=== PATIENT | female | born 1985 | race African-American/Black ===

== ENCOUNTER 2020-07-10 15:11 | Emergency (ER) | payer MEDICAID ==
[~2020-07-10] VITALS: Ht 167.6 cm; Wt 56.2 kg
[2020-07-10 15:14] VITALS: BP_SYST 120
[2020-07-10] MEDS ORDERED: NACL 0.9% 1,000 ML IV ONE (15:30)
[2020-07-10] MEDS ORDERED: KETOROLAC TROMETHAMINE 30 MG VIAL IVP ONE (15:30)
[2020-07-10 15:51] LABS: BASOPHILS % (AUTO) 0.5 % (0.0-2.0); EOSINOPHILS % (AUTO) 0.4 % (0.0-4.0); HEMATOCRIT 37.9 % (36-48); HEMOGLOBIN 12.5 g/dL (12.0-16.0); LYMPHOCYTES # (AUTO) 0.9 K/uL (1.0-5.5); LYMPHOCYTES % (AUTO) 12.4 % (20.5-51.5); MEAN CORPUSCULAR HEMOGLOBIN 31 pg (27-31); MEAN CORPUSCULAR HGB CONC 33 % (32-36); MEAN CORPUSCULAR VOLUME 94 fL (79.0-98.0); MONOCYTES # (AUTO) 0.4 K/uL (0.0-1.0); MONOCYTES % (AUTO) 5.7 % (1.7-9.3); NEUTROPHILS # (AUTO) 6.1 K/uL (1.8-7.7); PLATELET COUNT (AUTO) 241 K/uL (130-430); RED BLOOD CELL COUNT(AUTO) 4.04 MIL/uL (4.2-6.2); RED CELL DISTRIBUTION WIDTH 13.4 % (9.0-15.0); WHITE BLOOD COUNT (AUTO) 7.5 K/uL (4.8-10.8)
[2020-07-10 16:00] LABS: CALCIUM 8.8 mg/dL (8.4-11.0); CREATININE 0.71 mg/dL (0.55-1.30); POTASSIUM 3.3 mmol/L (3.5-5.1)
--- NOTE | 2020-07-10 16:00 | NUR ---
PT PLACED IN BED 2. REPORT TO YVONNE
--- NOTE | 2020-07-10 16:10 | NUR ---
MD BURNETTE AT BEDSIDE ASSESSING PT.
--- NOTE | 2020-07-10 16:20 | NUR ---
# 22 gauge angiocath placed to L hand. Use of asceptic technique. Opsite placed over site. Blood return noted. Blood for lab drawn from site. Flushed with 10 cc of normal saline. No evidence of infiltration noted. Patient tolerated well.
--- NOTE | 2020-07-10 16:32 | NUR ---
1L NS bolus infusing as per MD order
--- NOTE | 2020-07-10 16:35 | NUR ---
Urine sample collected and sent to lab
[2020-07-10] MEDS ORDERED: ONDANSETRON HCL 4 MG/2 ML VIAL IVP ONE (17:00)
[2020-07-10] MEDS ORDERED: POTASSIUM CHLORIDE 20 MEQ TAB.PRT.SR PO ONE (17:00)
[2020-07-10 17:08] LABS: BLOOD, URINE NEGATIVE (NEGATIVE); CLARITY/URINE CLEAR (CLEAR); COLOR,URINE YELLOW (YELLOW); GLUCOSE,URINE NEGATIVE (NEGATIVE); KETONES,URINE 3+ (NEGATIVE); LEUKOCYTE ESTERASE ,URINE 1+ (NEGATIVE); NITRITE, URINE NEGATIVE (NEGATIVE); PROTEIN URINE NEGATIVE (NEGATIVE)
[2020-07-10 17:11] LABS: BILIRUBIN,URINE 1+ (NEGATIVE)
[2020-07-10 17:14] LABS: BACTERIA,URINE MODERATE /HPF (None Seen)
--- NOTE | 2020-07-10 17:25 | NUR ---
Per Dr. Mckenzie, no orders for blood cultures. OK to give IV antibiotics
[2020-07-10] MEDS ORDERED: cefTRIAXone 1 GM in D5W 50 ML IV ONE (17:30)
[2020-07-10] MEDS ORDERED: cefTRIAXone 1 GM VIAL ONE (17:47)
--- NOTE | 2020-07-10 18:11 | NUR ---
Patient given written and verbal discharge instructions and verbalizes understanding. ER MD discussed with patient the results and treatment provided. Patient in stable condition. ID arm band removed. IV catheter removed intact and dressing applied, no active bleeding. Rx of CIPROFLAXIN AND ZOFRAN given. Patient educated on pain management and to follow up with PMD. Pain Scale 0/10. Opportunity for questions provided and answered. Medication side effect fact sheet provided.
[2020-07-10 18:12] VITALS: BP_SYST 120
== END 2020-07-10 18:12 | disposition home or self-care (01) ==
LOC: SED 15:11
DX: N12 Tubulo-interstitial nephritis, not specified as acute or chronic (principal)
CPT/HCPCS: 36415; 80048; 81000; 81025; 85025; 87086; 96361; 96365; 96375; 99284; J0696; J1885; J2405; J7030